=== PATIENT | male | born 1955 | race Caucasian/White ===

== ENCOUNTER 2017-01-02 08:55 | Outpatient (CLI) | payer BC ==
--- NOTE | 2017-01-05 15:31 | RAD ---
RIGHT KNEE 4 VIEWS: HISTORY: Right knee pain. FINDINGS: Mild degenerative changes are seen. No fracture, dislocation, or bony destruction is identified. IMPRESSION: Right knee osteoarthritis. POS: OFF
== END 2017-01-02 08:56 | disposition home or self-care (01) ==
LOC: RAD-FRANK 08:55
PROVIDERS: ATTEND Nurse Practitioner Family
DX: M25.561 Pain in right knee (principal); M17.11 Unilateral primary osteoarthritis, right knee